=== PATIENT | male | born 2000 | race Caucasian/White ===

== ENCOUNTER 2024-02-06 08:50 | Emergency (ER) | payer OTHER ==
[~2024-02-06] VITALS: Ht 182.9 cm; Wt 89.4 kg
[2024-02-06] MEDS ORDERED: ADVIL DUAL ACT1 EACH PO (10:51)
== END 2024-02-06 10:56 | disposition home or self-care (01) ==
LOC: ER 08:51
DX: S93.491A Sprain of other ligament of right ankle, initial encounter (principal); X58.XXXA Exposure to other specified factors, initial encounter; Y93.89 Activity, other specified; Y92.89 Other specified places as the place of occurrence of the external cause; Y99.8 Other external cause status